=== PATIENT | female | born 1955 | race Caucasian/White ===

== ENCOUNTER 2023-08-20 17:39 | Emergency (ER) | payer MEDICARE, OTHER ==
[2023-08-20 17:54] VITALS: TEMP 97.2
--- NOTE | 2023-08-20 18:45 | ERPHSYRPT ---
- History of Present Illness Time Seen by Provider: 08/20/23 17:50 Source: patient Exam Limitations: no limitations Patient Subjective Stated Complaint: PT states "I slipped and fell in the kitchen and something is wrong with my right hip. I cannot put any weight on it." Triage Nursing Assessment: Pt presented alert and oriented X3, skin wpd. Pt speak in clear full sentences. Pt resting comfortably on the bed. Pt right leg slihtly longer than the left pt stated that is normal. PT tender to right hip/groin. Physician History: 60-year-old female presents to the emergency department for evaluation of pain to her right hip. Patient reports she was at home in her kitchen when she slipped and fell onto her right hip. Patient was tripped by her dog. Patient attempted to stand up shortly thereafter and experienced severe pain at the right hip. Patient concerned for possible hip fracture. Pain described as an ache that is localized. No radiation. Pain worse with movement and palpation. Pain improved with rest. No other injuries reported. No BHT or LOC no neck pain. Cervical spine cleared clinically. Patient voices no other complaints or concerns at this time. Portions of this note were created with voice recognition technology. There may be grammatical, spelling, punctuation or sound alike errors Method of Injury: fell Occurred: just prior to arrival Quality: constant Severity of Pain-Max: moderate Severity of Pain-Current: moderate Lower Extremities Pain: hip: right Modifying Factors: Improves With: movement Associated Symptoms: unable to bear weight Allergies/Adverse Reactions: No Known Drug Allergies Allergy (Verified 08/20/23 17:54) Home Medications: Amlodipine Besylate [Norvasc] 10 mg PO DAILY 08/20/23 [History] Ezetimibe 10 mg [Zetia 10 MG] 10 mg PO DAILY 08/20/23 [History] Levothyroxine Sodium [Synthroid] 125 mcg PO DAILY 08/20/23 [History] Liothyronine Sodium 5 mcg PO DAILY 08/20/23 [History] Metoprolol Succinate 50 mg [Toprol Xl 50 MG] 50 mg PO DAILY 08/20/23 [History] Olmesartan Medoxomil [Benicar] 40 mg PO DAILY 08/20/23 [History] Potassium Chloride [Klor-Con M10] 20 meq PO DAILY 08/20/23 [History] Sertraline HCl 50 mg [Zoloft 50 mg Tablet] 50 mg PO DAILY 08/20/23 [History] Zolpidem Tartrate 10 mg [Ambien 10 MG] 5 mg PO HS 08/20/23 [History] Hx Tetanus, Diphtheria Vaccination/Date Given: No Hx Influenza Vaccination/Date Given: No Hx Pneumococcal Vaccination/Date Given: No Immunizations Up to Date: No Travel Risk - International Travel Have you traveled outside of the country in past 3 weeks: No - Emerging Infectious Disease Are you exhibiting symptoms associated with any current EIDs: No - Review of Systems Constitutional: No Symptoms, No Fever, No Chills Eyes: No Symptoms Ears, Nose, & Throat: No Symptoms Respiratory: No Symptoms, No Cough, No Dyspnea Cardiac: No Symptoms, No Chest Pain, No Edema, No Syncope Abdominal/Gastrointestinal: No Symptoms, No Abdominal Pain, No Nausea, No Vomiting, No Diarrhea Genitourinary Symptoms: No Symptoms, No Dysuria Musculoskeletal: No Symptoms, No Back Pain, No Neck Pain Skin: No Symptoms, No Rash Neurological: No Symptoms, No Dizziness, No Focal Weakness, No Sensory Changes Psychological: No Symptoms Endocrine: No Symptoms Hematologic/Lymphatic: No Symptoms Immunological/Allergic: No Symptoms All Other Systems: Reviewed and Negative - Past Medical History Pertinent Past Medical History: Yes Neurological History: No Pertinent History ENT History: No Pertinent History Cardiac History: Hypertension Respiratory History: No Pertinent History Endocrine Medical History: Hypothyroidism Musculoskeletal History: No Pertinent History GI Medical History: GERD History: No Pertinent History Psycho-Social History: Depression Female Reproductive Disorders: No Pertinent History - Past Surgical History Past Surgical History: Yes Other Surgical History: thyroidectomy - Social History Smoking Status: Former smoker Exposure to second hand smoke: Yes Drug Use: none - Social Determinants of Health Will the patient participate in the screening: Yes Do you worry about a steady place to live?: No Do you have any problems with any of the following?: No known problems In the past 12 months,have you had to go without utilities?: No Transportation Issues: No Has anyone in your support network made you feel unsafe?: No Have you or anyone in your house had to go without enough: No - Nursing Vital Signs Nursing Vital Signs: Initial Vital Signs Temperature 97.2 F 08/20/23 17:47 Pulse Rate 69 08/20/23 17:47 Respiratory Rate 20 08/20/23 17:47 Blood Pressure 193/97 08/20/23 17:47 O2 Sat by Pulse Oximetry 96 08/20/23 17:47 Pain Scale Pain Intensity 2 - Physical Exam General Appearance: no apparent distress, alert Eyes, Ears, Nose, Throat Exam: TMs normal, pharynx normal, moist mucous membranes Neck Exam: non-tender, supple Cardiovascular/Respiratory Exam: chest non-tender, normal breath sounds, regular rate/rhythm, no respiratory distress Gastrointestinal/Abdominal Exam: non-tender Back Exam: normal inspection, No vertebral tenderness Hips Exam: right: pain, other (Tenderness to palpation right hip. Overlying soft tissue intact. No signs of trauma. Pain with logroll of the involved right lower extremity. Extremities neurovascular tact distally compartments are soft cap refill less than 2 seconds.), left: non-tender, normal inspection, normal range of motion, no evidence of injury Legs Exam: bilateral leg: non-tender, normal inspection, normal range of motion, no evidence of injury Knees Exam: bilateral knee: non-tender, normal inspection, normal range of motion, no evidence of injury Ankle Exam: bilateral ankle: non-tender, normal inspection, normal range of motion, no evidence of injury Foot Exam: bilateral foot: non-tender, normal inspection, normal range of motion, no evidence of injury Neuro/Tendon Exam: normal sensation, normal motor functions Mental Status Exam: alert, oriented x 3, cooperative Skin Exam: normal color, warm, dry SpO2 Interpretation: normal SpO2: 96 O2 Delivery: Room Air - Course Nursing assessment & vital signs reviewed: Yes - CT Exams Lower Extremity CT Interpretation: Tele-radiologist Report (Nondisplaced right subcapital fracture) Ordered Tests: Active Orders 24 hr Category Date Time Status LOWER EXTREMITY WO CONTRAST [CT] Stat Exams 08/20/23 18:01 Taken CBC W DIFF Stat Lab 08/20/23 19:00 Completed CMP Stat Lab 08/20/23 19:00 Completed UA W/RFX UR CULTURE Stat Lab 08/20/23 20:00 Completed Medication Summary Discontinued Medications Generic Name Dose Route Start Last Admin Trade Name Freq PRN Reason Stop Dose Admin Acetaminophen 1,000 mg 08/20/23 20:25 08/20/23 20:33 Acetaminophen 500 Mg Tablet PO 08/20/23 20:26 1,000 mg STAT STA Administration Acetaminophen Confirm 08/20/23 20:32 Acetaminophen 500 Mg Tablet Administered 08/20/23 20:33 Dose 1,000 mg .ROUTE .[facility] Lab/Rad Data: Laboratory Result Diagrams 08/20/23 19:00 08/20/23 19:00 Laboratory Results 08/20/23 08/20/23 08/20/23 Range/Units 20:00 19:00 19:00 WBC 8.8 (3.98-10.04) x10^3/uL RBC 4.60 (3.93-5.22) x10^6/uL Hgb 14.7 (11.2-15.7) g/dL Hct 43.0 (34.1-44.9) % MCV 93.5 (79.4-94.8) fL MCH 32.0 (25.6-32.2) pg MCHC 34.2 (32.2-35.5) g/dL RDW 13.2 (11.7-14.4) % Plt Count 247 (182-369) x10^3/uL MPV 9.8 (9.4-12.3) fL Gran % 63.7 (34.0-71.1) % Immature Gran % (Auto) 0.6 H (0.001-0.429) % Nucleat RBC Rel Count 0.0 (0.00-0.2) % Eos # (Auto) 0.11 (0.04-0.36) x10^3/uL Immature Gran # (Auto) 0.05 H (0.001-0.031) x10^3u/L Absolute Lymphs (auto) 2.20 (1.18-3.74) x10^3/uL Absolute Monos (auto) 0.77 (0.24-0.86) x10^3/uL Absolute Nucleated RBC 0.00 (0.00-0.012) x10^3u/L Lymphocytes % 25.0 (19.3-51.7) % Monocytes % 8.8 (4.7-12.5) % Eosinophils % 1.3 (0.7-5.8) % Basophils % 0.6 (0.1-1.2) % Absolute Granulocytes 5.62 (1.56-6.13) x10^3/uL Basophils # 0.05 (0.01-0.08) x10^3/uL Sodium 141 (135-145) mmol/L Potassium 3.5 (3.5-5.1) mmol/L Chloride 103 (98-107) mmol/L Carbon Dioxide 28 (22-30) mmol/L Anion Gap 12.3 (5-15) MEQ/L BUN 20 H (7-17) mg/dL Creatinine 0.76 (0.52-1.04) mg/dL Estimated GFR 85.3 ML/MIN Glucose 100 (74-106) mg/dL Calcium 10.0 (8.4-10.2) mg/dL Total Bilirubin 1.00 (0.2-1.3) mg/dL AST 31 (14-36) U/L ALT 23 (0-35) U/L Alkaline Phosphatase 71 (38-126) U/L Serum Total Protein 7.9 (6.3-8.2) g/dL Albumin 4.6 (3.5-5.0) g/dL Urine Color Yellow (Yellow) Urine Appearance Clear (Clear) Urine pH 8.0 (4.6-8.0) Ur Specific [place] 1.015 (1.005-1.030) Urine Protein Negative (Negative) Urine Glucose (UA) Negative (Negative) mg/dL Urine Ketones Negative (Negative) Urine Blood Negative (Negative) Urine Nitrite Negative (Negative) Urine Bilirubin Negative (Negative) Urine Urobilinogen 1.0 A (0.2) mg/dL Ur Leukocyte Esterase Negative (Negative) U Hyaline Cast (Auto) NONE SEEN (0-2) /LPF Urine Microscopic RBC 3-5 (0-5) /HPF Urine Microscopic WBC 0-2 (0-5) /HPF Ur Epithelial Cells None Seen (None Seen) /HPF Calcium Oxalate Crystal 6-10 A (None Seen) /HPF Urine Bacteria None Seen (None Seen) /HPF Urine Culture Reflexed NO (NO) - Progress Progress: improved Progress Note: 68-year-old female presents to our ED for evaluation status post fall. Patient states she tripped over her dog. Patient landed on her right hip. Physical exam reveals pain and tenderness to her right hip. Pain worse with movement and palpation. CT scan reveals a subcapital fracture. Patient requested transfer to [facility]. Patient accepted by [facility]. Patient will be going to room 3123. Patient accepted by orthopedic Dr. Reinoso. Patient accepted at approximately 6 PM. Portions of this note were created with voice recognition technology. There may be grammatical, spelling, punctuation or sound alike errors Complex problem addressed is moderate acute complicated. No critical care time. Complex of data reviewed and analyzed is extensive. Test ordered test reviewed results analyzed and correlated clinically with history and physical examination. Patient accepted by Dr. Reinoso service. Risk of complication and or risk of morbidity/mortality patient management is high. Patient requires hospitalization/transfer for higher level of care. Vital stable. Time spent to transfer patient is approximately 30 minutes. Plan of care established for shared decision making. No social determinants of health present impede follow- up. Portions of this note were created with voice recognition technology. There may be grammatical, spelling, punctuation or sound alike errors 08/21/23 00:35 Counseled pt/family regarding: lab results, diagnosis, rad results - Departure Departure Disposition: Transfer Clinical Impression: Fall, Hip fracture Condition: Stable Critical Care Time: No Referrals: REYNALDO PEREZ MD [Primary Care Provider] - Follow up/PCP as directed
[2023-08-20 19:58] LABS: Absolute Neutrophil Ct (ANC) 5.62 x10^3/uL (1.56-6.13); BASOPHIL % 0.6 % (0.1-1.2); Basophil (Absolute #) 0.05 x10^3/uL (0.01-0.08); Eosinophil % 1.3 % (0.7-5.8); Eosinophil (Absolute #) 0.11 x10^3/uL (0.04-0.36); Hemoglobin 14.7 g/dL (11.2-15.7); IMMATURE GRAN # 0.05 x10^3u/L (0.001-0.031); IMMATURE GRAN % 0.6 % (0.001-0.429); Mean Cell Volume 93.5 fL (79.4-94.8); Mean Corpuscular Hgb Concent. 34.2 g/dL (32.2-35.5); Mean Platelet Volume 9.8 fL (9.4-12.3); Monocyte (Absolute #) 0.77 x10^3/uL (0.24-0.86); Monocytes % 8.8 % (4.7-12.5); Neutrophil % 63.7 % (34.0-71.1); Platelet Count 247 x10^3/uL (182-369); Red Cell Distribution Width 13.2 % (11.7-14.4); White Blood Count 8.8 x10^3/uL (3.98-10.04)
[2023-08-20 20:03] LABS: ALBUMIN 4.6 g/dL (3.5-5.0); ANION GAP 12.3 MEQ/L (5-15); Creatinine 1 0.76 mg/dL (0.52-1.04); EST GLOMERULAR FILTRATION RATE 85.3 ML/MIN; Potassium 3.5 mmol/L (3.5-5.1); Total Protein 7.9 g/dL (6.3-8.2)
[2023-08-20 20:25] LABS: ADD URINE CULTURE? NO (NO); Appearance Clear (Clear); Bacteria None Seen /HPF (None Seen); Bilirubin Negative (Negative); Blood Negative (Negative); Epithelial Cells None Seen /HPF (None Seen); Glucose, Urine Negative (Negative); Hyaline Casts NONE SEEN /LPF (0-2); Ketones Negative (Negative); Leukocyte Esterase Negative (Negative); Nitrite Negative (Negative); Protein,Urine Dip Negative (Negative); Specific Gravity 1.015 (1.005-1.030); WBC 0-2 /HPF (0-5)
[2023-08-20] MEDS ORDERED: TYLENOL EXTRA STRENGTH 500 MG ONE (20:32)
[2023-08-20] MEDS: TYLENOL EXTRA STRENGTH 500 MG PO STA (20:33)
[2023-08-20 23:22] VITALS: RESP 17
[2023-08-21 01:01] VITALS: BP 160/83; PULSE 76; O2SAT 94
--- NOTE | 2023-08-21 08:53 | XRAY ---
Indication: Pain following fall. Multiple contiguous axial images obtained through the right hip. Sagittal and coronal reformatted images obtained. Comparison: Hip radiograph March 27, 2017. Right hip articulation intact without abnormal effusion. Right femur demonstrates new nondisplaced subcapital fracture. Jenny chronic findings including osteopenia and tiny spurring greater trochanter. Visualized noncontrasted soft tissues demonstrates minimal scattered arteriosclerotic calcifications. No focal solid/cystic soft tissue mass or abnormal fluid collection. Impression: Nondisplaced subcapital fracture. Osteopenia, spurring greater trochanter, and arteriosclerotic disease.
== END 2023-08-21 01:00 | disposition short-term general hospital (02) ==
LOC: ED 17:39
DX: S72.011A Unspecified intracapsular fracture of right femur, initial encounter for closed fracture (principal); W01.0XXA Fall on same level from slipping, tripping and stumbling without subsequent striking against object, initial encounter; Y92.000 Kitchen of unspecified non-institutional (private) residence as the place of occurrence of the external cause; I10 Essential (primary) hypertension; Z79.899 Other long term (current) drug therapy
CPT/HCPCS: 36415; 73700; 80053; 81001; 85025; 99284; A9270-GY